=== PATIENT | male | born 1960 | race African-American/Black ===

== ENCOUNTER 2020-01-11 17:24 | Inpatient (IN) ==
[2020-01-11] MEDS ORDERED: ACETAMINOPHEN 500 MG TABLET PO STA (17:52)
[2020-01-11] MEDS ORDERED: SODIUM CHLORIDE 0.9% 1,000 ML IV STA ×3 (17:52→20:24)
[2020-01-11 18:52] LABS: Bacteria,Urine Many /HPF (Few); Bilirubin,Urine Negative (Negative); Blood, Urine Large mg/dL (Negative); Glucose,Urine (UA) Negative (Negative); Hyaline Casts,Urine 16 /LPF (0-3); Ketones,Urine Negative (Negative); Mucus,Urine Occasional /LPF (Occasional); Nitrite,Urine Negative (Negative); Protein,Urine 100 MG/DL; RBC,Urine 210 /HPF (0-4); Squamous Epithelial Cell,Urine Occasional /HPF (0-10); Urine Appearance CLOUDY (Clear); Urine Color Amber (Yellow); Urine Specific Gravity 1.013 (1.001-1.035); Urine Urobilinogen < 2.0 EU/DL (0.2-1.0); WBC,Urine 107 /HPF (0-6)
[2020-01-11] MEDS ORDERED: cefTRIAXone 1,000 MG in SODIUM CHLORIDE 0.9% 100 ML IV STA (18:54)
[2020-01-11 19:05] LABS: Basophils # 0.1 10*3/uL (0.0-0.2); Basophils % 0.3 % (0.0-0.8); Hematocrit 38.8 VOL% (42.0-52.0); Immature Granulocytes % 6.3 %; Immature Granulocytes Absolute 1.06 #; Lymphocytes # 0.5 10*3/uL (1.4-4.0); Lymphocytes % 2.9 % (21.2-54.2); Mean Corpuscular HGB Conc 33.5 GM/DL (32-36); Mean Corpuscular Volume 71.3 FL (87-102); Monocytes % 1.1 % (1.7-12.7); Neutrophils % 89.4 % (38.7-73.9); Platelet Count 81 T/CUMM (130-400); Red Blood Count 5.44 MC/CUMM (3.8-5.5); Red Cell Distribution Width 16.1 % (9.3-17.3); White Blood Count 16.9 T/CUMM (4-12)
[2020-01-11 19:25] LABS: Alanine Aminotransferase 27 U/L (16-61); Albumin 2.8 G/DL (3.4-5.0); Alkaline Phosphatase 84 U/L (45-117); Aspartate Amino Transferase 125 U/L (0-37); Blood Urea Nitrogen 38 MG/DL (7-18); Calcium 7.9 MG/DL (8.5-10.1); Estimated Glom Filtration Rate 38 ML/MIN; Glucose 168 MG/DL (74-106); Osmolality,Calculated 276.5 MOS/KG (273-304); Total Protein 7.4 G/DL (6.4-8.3)
[2020-01-11 20:10] LABS: Lymphocytes 5 % (20-55); Segmented Neutrophils 93 % (50-85); Total Cells Counted 100
[2020-01-11] MEDS ORDERED: SODIUM CHLORIDE 0.9% 3,000 ML IV ONE (20:21)
[2020-01-11] MEDS ORDERED: hydrALAZINE 20 MG/1 ML VIAL IV PRN (20:25)
[2020-01-11] MEDS ORDERED: ONDANSETRON 4 MG/2 ML VIAL IV PRN (20:25)
[2020-01-11] MEDS ORDERED: DEXTROSE 50% 25 GM/50 ML VIAL IV PRN (20:25)
[2020-01-11] MEDS ORDERED: GLUCAGON 1 MG VIAL IM PRN (20:25)
[2020-01-11] MEDS ORDERED: MORPHINE 4 MG/1 ML VIAL IV PRN (20:25)
[2020-01-11] MEDS ORDERED: SODIUM CHLORIDE 0.45% 1,000 ML IV SCH (20:30)
[2020-01-11 20:39] LABS: INR 1.5; PT Patient Result 15.3 SECS (9.8-11.9)
[2020-01-11 20:42] LABS: Partial Thromboplastin Time 45.8 SECS (23.9-33.8)
[2020-01-11 20:56] LABS: Thyroid Stimulating Hormone 2.06 uIU/ml (0.358-3.74)
[2020-01-11] MEDS ORDERED: LIDOCAINE 2% TOP JELLY 20 ML VIAL INTRAURETH ONE (21:28)
[2020-01-11] MEDS ORDERED: DEXTROSE 50% 25 GM/50 ML SYRINGE IV PRN (21:29)
[2020-01-11] MEDS: ENOXAPARIN 30 MG/0.3 ML SYRINGE SUBCUT SCH (23:15)
[2020-01-12] MEDS: SODIUM CHLORIDE 0.9% 1,000 ML IV SCH ×2 (00:42→18:50)
[2020-01-12 02:48] LABS: Basophils # 0.1 10*3/uL (0.0-0.2); Basophils % 0.3 % (0.0-0.8); Hematocrit 34.8 VOL% (42.0-52.0); Hemoglobin 11.6 GM/DL (14.0-18.0); Immature Granulocytes % 0.4 %; Immature Granulocytes Absolute 0.09 #; Lymphocytes # 1.2 10*3/uL (1.4-4.0); Lymphocytes % 5.6 % (21.2-54.2); Mean Corpuscular HGB Conc 33.3 GM/DL (32-36); Mean Corpuscular Volume 71.8 FL (87-102); Monocytes % 1.9 % (1.7-12.7); Neutrophils % 91.8 % (38.7-73.9); Red Blood Count 4.85 MC/CUMM (3.8-5.5); White Blood Count 20.8 T/CUMM (4-12)
[2020-01-12 02:49] LABS: Platelet Count 63 T/CUMM (130-400)
[2020-01-12 03:07] LABS: Albumin 2.5 G/DL (3.4-5.0); Bilirubin,Total 1.6 MG/DL (0.2-1.0); Calcium 7.2 MG/DL (8.5-10.1); Total Protein 6.5 G/DL (6.4-8.3)
[2020-01-12 03:16] LABS: Band Neutrophils 3 % (0-10); Eosinophils 1 % (0-10); Lymphocytes 7 % (20-55); Metamyelocytes 2 %; Total Cells Counted 100
[2020-01-12 03:17] LABS: Hypochromasia 2+; Platelet Estimate Decreased
[2020-01-12 03:18] LABS: Smudge Cells Few; Target Cells Few
[2020-01-12 03:19] LABS: Segmented Neutrophils 86 % (50-85)
[2020-01-12] MEDS: PANTOPRAZOLE 40 MG TABLET PO SCH (13:25)
[2020-01-12] MEDS: ENOXAPARIN 30 MG/0.3 ML SYRINGE SUBCUT SCH (20:56)
[2020-01-12] MEDS: cefTRIAXone 1,000 MG in SYRINGE 1 EACH IV SCH (20:56)
[2020-01-13] MEDS: SODIUM CHLORIDE 0.9% 1,000 ML IV SCH ×3 (02:35→10:33)
[2020-01-13 09:11] LABS: Basophils # 0.1 10*3/uL (0.0-0.2); Basophils % 0.3 % (0.0-0.8); Eosinophils # 0.1 10*3/uL (0.0-0.87); Eosinophils % 0.5 % (0.00-10.9); Hematocrit 34.5 VOL% (42.0-52.0); Hemoglobin 11.7 GM/DL (14.0-18.0); Immature Granulocytes % 0.9 %; Immature Granulocytes Absolute 0.17 #; Lymphocytes # 1.5 10*3/uL (1.4-4.0); Mean Corpuscular HGB Conc 33.9 GM/DL (32-36); Mean Corpuscular Volume 70.3 FL (87-102); Monocytes % 4.5 % (1.7-12.7); Neutrophils % 85.8 % (38.7-73.9); Red Blood Count 4.91 MC/CUMM (3.8-5.5); Red Cell Distribution Width 15.7 % (9.3-17.3); White Blood Count 18.8 T/CUMM (4-12)
[2020-01-13 09:12] LABS: Platelet Count 91 T/CUMM (130-400)
[2020-01-13 09:24] LABS: Osmolality,Calculated 281.5 MOS/KG (273-304)
[2020-01-13 09:28] LABS: Hypochromasia 1+; Lymphocytes 9 % (20-55); Microcytosis 1+; Platelet Estimate Decreased; Segmented Neutrophils 85 % (50-85); Total Cells Counted 100
[2020-01-13] MEDS: PANTOPRAZOLE 40 MG TABLET PO SCH (10:10)
[2020-01-13] MEDS: SODIUM CHLORIDE 0.45% 1,000 ML IV SCH (19:42)
[2020-01-13] MEDS: ENOXAPARIN 30 MG/0.3 ML SYRINGE SUBCUT SCH (20:54)
[2020-01-13] MEDS: cefTRIAXone 1,000 MG in SYRINGE 1 EACH IV SCH (20:54)
[2020-01-14 06:56] LABS: Basophils # 0.1 10*3/uL (0.0-0.2); Basophils % 0.4 % (0.0-0.8); Eosinophils # 0.3 10*3/uL (0.0-0.87); Hematocrit 32.3 VOL% (42.0-52.0); Immature Granulocytes % 2.7 %; Immature Granulocytes Absolute 0.33 #; Lymphocytes # 1.8 10*3/uL (1.4-4.0); Lymphocytes % 14.2 % (21.2-54.2); Mean Corpuscular HGB Conc 34.1 GM/DL (32-36); Mean Corpuscular Volume 69.2 FL (87-102); Monocytes % 12.4 % (1.7-12.7); Neutrophils % 68.3 % (38.7-73.9); Platelet Count 110 T/CUMM (130-400); Red Blood Count 4.67 MC/CUMM (3.8-5.5); Red Cell Distribution Width 15.5 % (9.3-17.3); White Blood Count 12.3 T/CUMM (4-12)
[2020-01-14 07:13] LABS: Calcium 8.4 MG/DL (8.5-10.1); Osmolality,Calculated 276.5 MOS/KG (273-304)
[2020-01-14 07:18] LABS: Eosinophils 2 % (0-10); Hypochromasia 1+; Lymphocytes 20 % (20-55); Microcytosis 1+; Segmented Neutrophils 64 % (50-85); Total Cells Counted 100
[2020-01-14 07:19] LABS: Platelet Estimate Adequate; Target Cells Few
[2020-01-14] MEDS: PANTOPRAZOLE 40 MG TABLET PO SCH (08:37)
[2020-01-14] MEDS: SODIUM CHLORIDE 0.45% 1,000 ML IV SCH (08:44)
[2020-01-14 09:20] LABS: Amorphous Crystals,Urine Occasional /HPF (Few); Bacteria,Urine Occasional /HPF (Few); Bilirubin,Urine Negative (Negative); Blood, Urine Moderate mg/dL (Negative); Glucose,Urine (UA) 50 mg/dL (Negative); Ketones,Urine Negative (Negative); Mucus,Urine Occasional /LPF (Occasional); Nitrite,Urine Negative (Negative); Protein,Urine Negative; RBC,Urine 13 /HPF (0-4); Squamous Epithelial Cell,Urine Occasional /HPF (0-10); Urine Appearance CLEAR (Clear); Urine Color Yellow (Yellow); Urine Specific Gravity 1.008 (1.001-1.035); WBC,Urine 53 /HPF (0-6)
[2020-01-14] MEDS: amLODIPine 5 MG TABLET PO SCH (15:39)
[2020-01-14] MEDS: cefTRIAXone 1,000 MG in SYRINGE 1 EACH IV SCH (20:39)
[2020-01-14] MEDS: ENOXAPARIN 30 MG/0.3 ML SYRINGE SUBCUT SCH (20:41)
[2020-01-15] MEDS: SODIUM CHLORIDE 0.45% 1,000 ML IV SCH ×2 (00:50→20:55)
[2020-01-15 06:26] LABS: HDL Cholesterol < 10 MG/DL (40-60); Triglycerides 302 MG/DL (2-150); VLDL CHOLESTEROL 60.4 MG/DL
[2020-01-15] MEDS ORDERED: VANCOMYCIN INJ 1,000 MG in SODIUM CHLORIDE 0.9% 250 ML IV ONE (08:47)
[2020-01-15 09:21] LABS: Basophils # 0.1 10*3/uL (0.0-0.2); Basophils % 0.3 % (0.0-0.8); Eosinophils # 0.3 10*3/uL (0.0-0.87); Eosinophils % 1.7 % (0.00-10.9); Hematocrit 34.4 VOL% (42.0-52.0); Hemoglobin 11.8 GM/DL (14.0-18.0); Immature Granulocytes % 6.2 %; Immature Granulocytes Absolute 0.92 #; Lymphocytes # 1.7 10*3/uL (1.4-4.0); Lymphocytes % 11.5 % (21.2-54.2); Mean Corpuscular HGB Conc 34.3 GM/DL (32-36); Mean Corpuscular Volume 68.7 FL (87-102); Monocytes % 9.7 % (1.7-12.7); NRBC # 0.02 10*3/uL; Neutrophils % 70.6 % (38.7-73.9); Platelet Count 164 T/CUMM (130-400); Red Blood Count 5.01 MC/CUMM (3.8-5.5); Red Cell Distribution Width 15.3 % (9.3-17.3); White Blood Count 14.9 T/CUMM (4-12)
[2020-01-15] MEDS: PANTOPRAZOLE 40 MG TABLET PO SCH (10:01)
[2020-01-15] MEDS: amLODIPine 5 MG TABLET PO SCH (10:01)
[2020-01-15 10:43] LABS: Hypochromasia 2+; Lymphocytes 6 % (20-55); Microcytosis 3+; Platelet Estimate Adequate; Segmented Neutrophils 61 % (50-85); Total Cells Counted 100
[2020-01-15] MEDS: OMEGA 3 ACID ETHYL ESTERS 1 GM CAPSULE PO SCH ×2 (13:36→20:57)
[2020-01-15] MEDS: FENOFIBRATE 145 MG TABLET PO SCH (13:36)
[2020-01-15] MEDS ORDERED: ACETAMINOPHEN 325 MG TABLET PO PRN (18:55)
[2020-01-15] MEDS: ENOXAPARIN 30 MG/0.3 ML SYRINGE SUBCUT SCH (20:57)
[2020-01-15] MEDS: cefTRIAXone 1,000 MG in SYRINGE 1 EACH IV SCH (21:00)
[2020-01-16] MEDS ORDERED: FUROSEMIDE 40 MG/4 ML VIAL IV ONE (08:20)
[2020-01-16] MEDS: AZITHROMYCIN 250 MG TABLET PO SCH (08:57)
[2020-01-16] MEDS: FENOFIBRATE 145 MG TABLET PO SCH (08:57)
[2020-01-16] MEDS: PANTOPRAZOLE 40 MG TABLET PO SCH (08:57)
[2020-01-16] MEDS: amLODIPine 10 MG TABLET PO SCH (08:57)
[2020-01-16 09:22] LABS: Basophils # 0.1 10*3/uL (0.0-0.2); Basophils % 0.2 % (0.0-0.8); Eosinophils # 0.1 10*3/uL (0.0-0.87); Eosinophils % 0.5 % (0.00-10.9); Hematocrit 35.7 VOL% (42.0-52.0); Hemoglobin 12.2 GM/DL (14.0-18.0); Immature Granulocytes % 5.3 %; Immature Granulocytes Absolute 1.15 #; Mean Corpuscular HGB Conc 34.2 GM/DL (32-36); Mean Corpuscular Volume 69.3 FL (87-102); Monocytes % 7.7 % (1.7-12.7); Neutrophils % 77.3 % (38.7-73.9); Platelet Count 222 T/CUMM (130-400); Red Blood Count 5.15 MC/CUMM (3.8-5.5); Red Cell Distribution Width 15.3 % (9.3-17.3); White Blood Count 21.6 T/CUMM (4-12)
[2020-01-16 09:49] LABS: Calcium 8.9 MG/DL (8.5-10.1)
[2020-01-16] MEDS ORDERED: MAGNESIUM SULF RIDER 2 GM in PREMIX 1 EACH IV ONE (10:52)
[2020-01-16] MEDS ORDERED: POTASSIUM CHLORIDE 20 MEQ TABLET PO ONE (10:52)
[2020-01-16] MEDS: OMEGA 3 ACID ETHYL ESTERS 1 GM CAPSULE PO SCH ×2 (11:55→20:47)
[2020-01-16 13:11] LABS: Band Neutrophils 2 % (0-10); Hypochromasia 4+; Lymphocytes 8 % (20-55); Polychromasia Slight; Segmented Neutrophils 73 % (50-85); Total Cells Counted 100
[2020-01-16 13:12] LABS: Microcytosis 3+; Platelet Estimate Normal; Target Cells 2+
[2020-01-16] MEDS: VANCOMYCIN INJ 1,250 MG in SODIUM CHLORIDE 0.9% 250 ML IV SCH (16:40)
[2020-01-16] MEDS: ENOXAPARIN 30 MG/0.3 ML SYRINGE SUBCUT SCH (20:47)
[2020-01-16] MEDS: cefTRIAXone 1,000 MG in SYRINGE 1 EACH IV SCH (20:48)
[2020-01-17] MEDS: VANCOMYCIN INJ 1,250 MG in SODIUM CHLORIDE 0.9% 250 ML IV SCH (04:14)
[2020-01-17 05:59] LABS: Basophils # 0.1 10*3/uL (0.0-0.2); Basophils % 0.2 % (0.0-0.8); Eosinophils # 0.2 10*3/uL (0.0-0.87); Hematocrit 30.7 VOL% (42.0-52.0); Hemoglobin 10.3 GM/DL (14.0-18.0); Immature Granulocytes % 4.9 %; Immature Granulocytes Absolute 1.03 #; Lymphocytes # 2.4 10*3/uL (1.4-4.0); Lymphocytes % 11.3 % (21.2-54.2); Mean Corpuscular HGB Conc 33.6 GM/DL (32-36); Mean Corpuscular Volume 69.6 FL (87-102); Monocytes % 7.8 % (1.7-12.7); Neutrophils % 74.8 % (38.7-73.9); Platelet Count 230 T/CUMM (130-400); Red Blood Count 4.41 MC/CUMM (3.8-5.5); Red Cell Distribution Width 14.6 % (9.3-17.3); White Blood Count 20.9 T/CUMM (4-12)
[2020-01-17 06:25] LABS: Eosinophils 3 % (0-10); Hypochromasia 1+; Lymphocytes 5 % (20-55); Platelet Estimate Adequate; Segmented Neutrophils 84 % (50-85); Target Cells Few; Total Cells Counted 100
[2020-01-17 06:26] LABS: Microcytosis 1+
[2020-01-17 06:33] LABS: Calcium 8.7 MG/DL (8.5-10.1); Osmolality,Calculated 274.7 MOS/KG (273-304)
[2020-01-17] MEDS: FENOFIBRATE 145 MG TABLET PO SCH (08:51)
[2020-01-17] MEDS: amLODIPine 10 MG TABLET PO SCH (08:52)
[2020-01-17] MEDS: AZITHROMYCIN 250 MG TABLET PO SCH (08:52)
[2020-01-17] MEDS: PANTOPRAZOLE 40 MG TABLET PO SCH (08:52)
[2020-01-17] MEDS: OMEGA 3 ACID ETHYL ESTERS 1 GM CAPSULE PO SCH (10:34)
[2020-01-17 11:34] VITALS: BP 126/71
== END 2020-01-17 14:26 | disposition home or self-care (01) | DRG 872 ==
LOC: N.ED 17:24 → N.3E 20:37
PROVIDERS: ADMIT Internal Medicine; ATTEND Internal Medicine

== ENCOUNTER 2020-01-20 20:49 | Inpatient (IN) ==
[2020-01-20] MEDS ORDERED: ASPIRIN 325 MG TABLET PO STA (21:14)
[2020-01-20 21:41] LABS: Basophils # 0.1 10*3/uL (0.0-0.2); Basophils % 0.2 % (0.0-0.8); Eosinophils % 0.2 % (0.00-10.9); Hematocrit 28.1 VOL% (42.0-52.0); Hemoglobin 9.8 GM/DL (14.0-18.0); Immature Granulocytes % 2.2 %; Immature Granulocytes Absolute 0.47 #; Lymphocytes # 2.2 10*3/uL (1.4-4.0); Lymphocytes % 10.1 % (21.2-54.2); Mean Corpuscular HGB Conc 34.9 GM/DL (32-36); Mean Corpuscular Volume 68.9 FL (87-102); Monocytes % 4.3 % (1.7-12.7); Platelet Count 266 T/CUMM (130-400); Red Blood Count 4.08 MC/CUMM (3.8-5.5); Red Cell Distribution Width 14.8 % (9.3-17.3); White Blood Count 21.8 T/CUMM (4-12)
[2020-01-20 21:46] LABS: INR 1.1; PT Patient Result 11.9 SECS (9.8-11.9)
[2020-01-20 21:49] LABS: Lymphocytes 11 % (20-55); Segmented Neutrophils 85 % (50-85); Total Cells Counted 100
[2020-01-20 21:50] LABS: Anisocytosis Slight; Hypochromasia 1+; Platelet Estimate Adequate; Target Cells Few
[2020-01-20] MEDS ORDERED: cefTRIAXone 1,000 MG in SODIUM CHLORIDE 0.9% 100 ML IV STA (21:53)
[2020-01-20] MEDS ORDERED: DEXAMETHASONE 4 MG/1 ML VIAL IV STA (21:54)
[2020-01-20 22:03] LABS: Albumin 2.5 G/DL (3.4-5.0); Bilirubin,Total 1.1 MG/DL (0.2-1.0); Calcium 8.9 MG/DL (8.5-10.1); Osmolality,Calculated 265.8 MOS/KG (273-304)
[2020-01-20] MEDS ORDERED: carvediloL 3.125 MG TABLET PO STA (22:32)
[2020-01-20] MEDS ORDERED: ENOXAPARIN 30 MG/0.3 ML SYRINGE SUBCUT STA (22:32)
[2020-01-20] MEDS ORDERED: FUROSEMIDE 40 MG/4 ML VIAL IV STA (22:36)
[2020-01-20] MEDS ORDERED: ENOXAPARIN 100 MG/ML SYRINGE SUBCUT STA (22:38)
[2020-01-20] MEDS ORDERED: DOCUSATE SODIUM 100 MG CAPSULE PO PRN (23:10)
[2020-01-20] MEDS ORDERED: DEXTROSE 50% 25 GM/50 ML VIAL IV PRN (23:10)
[2020-01-20] MEDS ORDERED: ONDANSETRON 4 MG/2 ML VIAL IV PRN (23:10)
[2020-01-20] MEDS ORDERED: BISACODYL 5 MG TABLET PO PRN (23:10)
[2020-01-20] MEDS ORDERED: GLUCAGON 1 MG VIAL IM PRN (23:10)
[2020-01-20] MEDS ORDERED: NITROGLYCERIN SL 0.4 MG TABLET SL PRN (23:26)
[2020-01-20] MEDS ORDERED: AZITHROMYCIN INJ 500 MG in SODIUM CHLORIDE 0.9% 250 ML IV SCH (23:30)
[2020-01-21 01:45] LABS: Albumin 2.5 G/DL (3.4-5.0); Calcium 8.8 MG/DL (8.5-10.1); Osmolality,Calculated 271.5 MOS/KG (273-304); Total Protein 7.9 G/DL (6.4-8.3)
[2020-01-21] MEDS ORDERED: POTASSIUM CHLORIDE 20 MEQ TABLET PO ONE (02:15)
[2020-01-21 02:25] LABS: Basophils # 0.1 10*3/uL (0.0-0.2); Basophils % 0.2 % (0.0-0.8); Eosinophils % 0.1 % (0.00-10.9); Hematocrit 28.4 VOL% (42.0-52.0); Hemoglobin 9.5 GM/DL (14.0-18.0); Immature Granulocytes % 1.9 %; Immature Granulocytes Absolute 0.44 #; Lymphocytes # 1.6 10*3/uL (1.4-4.0); Lymphocytes % 6.9 % (21.2-54.2); Mean Corpuscular HGB Conc 33.5 GM/DL (32-36); Mean Corpuscular Volume 70.6 FL (87-102); Mean Platelet Volume 11.9 FL (9.6-12.0); Monocytes % 2.1 % (1.7-12.7); Neutrophils % 88.8 % (38.7-73.9); Red Blood Count 4.02 MC/CUMM (3.8-5.5); Red Cell Distribution Width 15.2 % (9.3-17.3); White Blood Count 23.6 T/CUMM (4-12)
[2020-01-21 02:27] LABS: Platelet Count 491 T/CUMM (130-400)
[2020-01-21] MEDS: ROSUVASTATIN 20 MG TABLET PO SCH ×2 (03:06→20:25)
[2020-01-21 03:09] LABS: Risk Ratio 6.79; VLDL CHOLESTEROL 23.6 MG/DL
[2020-01-21 04:17] LABS: Hypochromasia 2+; Platelet Estimate Increased
[2020-01-21 04:18] LABS: Ovalocytes 1+; Target Cells 1+
[2020-01-21 05:57] LABS: Albumin 2.4 G/DL (3.4-5.0); Bilirubin,Total 1.4 MG/DL (0.2-1.0); Calcium 9.1 MG/DL (8.5-10.1); Osmolality,Calculated 269.7 MOS/KG (273-304); Total Protein 8.1 G/DL (6.4-8.3)
[2020-01-21 05:59] LABS: Risk Ratio 6.07; VLDL CHOLESTEROL 22.2 MG/DL
[2020-01-21] MEDS ORDERED: FUROSEMIDE 40 MG/4 ML VIAL IV SCH ×2 (08:00→09:00)
[2020-01-21] MEDS ORDERED: carvediloL 6.25 MG TABLET PO SCH (08:00)
[2020-01-21] MEDS: FOLIC ACID 1 MG TABLET PO SCH (08:55)
[2020-01-21] MEDS: AZITHROMYCIN 250 MG TABLET PO SCH (08:55)
[2020-01-21] MEDS: THIAMINE 100 MG TABLET PO SCH (08:55)
[2020-01-21] MEDS: carvediloL 12.5 MG TABLET PO SCH ×2 (08:55→20:26)
[2020-01-21] MEDS: ASPIRIN CHEW 81 MG TABLET PO SCH (08:55)
[2020-01-21] MEDS ORDERED: POTASSIUM CHLORIDE 20 MEQ TABLET PO SCH (09:00)
[2020-01-21 12:32] LABS: Barbiturates Screen,Urine Negative (Negative); Benzodiazepines Screen,Urine Negative (Negative); Cannabinoid Screen,Urine Negative (Negative); Opiate Screen,Urine Positive (Negative); Phencyclidine Screen,Urine Negative (Negative)
[2020-01-21] MEDS: ENOXAPARIN 100 MG/ML SYRINGE SUBCUT SCH (12:51)
[2020-01-21] MEDS: NITROGLYCERIN 2% OINT 1 INCH/GM PACK TOP SCH ×2 (12:52→17:37)
[2020-01-21] MEDS ORDERED: SODIUM CHLORIDE 0.9% 250 ML IV ONE (16:54)
[2020-01-21] MEDS ORDERED: cefTRIAXone 1,000 MG VIAL IV SCH (21:00)
[2020-01-22] MEDS: NITROGLYCERIN 2% OINT 1 INCH/GM PACK TOP SCH ×5 (00:06→23:46)
[2020-01-22] MEDS: ENOXAPARIN 100 MG/ML SYRINGE SUBCUT SCH ×3 (00:06→22:25)
[2020-01-22] MEDS: MORPHINE 4 MG/1 ML VIAL IV PRN ×4 (00:51→22:26)
[2020-01-22] MEDS ORDERED: ALBUTEROL/IPRATROPIUM 3 ML NEB RESP TX PRN (05:19)
[2020-01-22 07:29] LABS: CKMB % 4.1 %; Calcium 9.1 MG/DL (8.5-10.1); Osmolality,Calculated 277.4 MOS/KG (273-304)
[2020-01-22 07:38] LABS: Troponin I 16.8 NG/ML (0.00-0.045)
[2020-01-22] MEDS ORDERED: FUROSEMIDE 40 MG/4 ML VIAL IV SCH (09:00)
[2020-01-22] MEDS: AZITHROMYCIN 250 MG TABLET PO SCH (10:05)
[2020-01-22] MEDS: ASPIRIN CHEW 81 MG TABLET PO SCH (10:05)
[2020-01-22] MEDS: THIAMINE 100 MG TABLET PO SCH (10:06)
[2020-01-22] MEDS: carvediloL 12.5 MG TABLET PO SCH ×2 (10:06→22:24)
[2020-01-22] MEDS: FOLIC ACID 1 MG TABLET PO SCH (10:06)
[2020-01-22] MEDS: FUROSEMIDE 40 MG/4 ML VIAL IV SCH (16:23)
[2020-01-22] MEDS: CEFEPIME 1,000 MG in SODIUM CHLORIDE 0.9% 100 ML IV SCH ×2 (16:24→22:25)
[2020-01-22 17:11] LABS: Bilirubin,Urine Negative (Negative); Blood, Urine Large mg/dL (Negative); Glucose,Urine (UA) Negative (Negative); Hyaline Casts,Urine 16 /LPF (0-3); Ketones,Urine Negative (Negative); Mucus,Urine Occasional /LPF (Occasional); Nitrite,Urine Negative (Negative); Protein,Urine Negative; RBC,Urine 19 /HPF (0-4); Squamous Epithelial Cell,Urine Occasional /HPF (0-10); Urine Appearance CLOUDY (Clear); Urine Color Yellow (Yellow); Urine Specific Gravity 1.014 (1.001-1.035); Urine Urobilinogen < 2.0 EU/DL (0.2-1.0); WBC,Urine 379 /HPF (0-6)
[2020-01-22] MEDS: POTASSIUM CHLORIDE 20 MEQ TABLET PO SCH (22:23)
[2020-01-22] MEDS: ROSUVASTATIN 20 MG TABLET PO SCH (22:23)
[2020-01-22] MEDS: TAMSULOSIN 0.4 MG CAPSULE PO SCH (22:24)
[2020-01-23] MEDS: NITROGLYCERIN 2% OINT 1 INCH/GM PACK TOP SCH ×4 (05:12→23:06)
[2020-01-23] MEDS: CEFEPIME 1,000 MG in SODIUM CHLORIDE 0.9% 100 ML IV SCH ×3 (06:29→22:27)
[2020-01-23 06:44] LABS: Osmolality,Calculated 281.1 MOS/KG (273-304)
[2020-01-23 06:49] LABS: Basophils % 0.2 % (0.0-0.8); Eosinophils % 0.1 % (0.00-10.9); Hematocrit 26.6 VOL% (42.0-52.0); Hemoglobin 8.7 GM/DL (14.0-18.0); Immature Granulocytes % 1.7 %; Immature Granulocytes Absolute 0.25 #; Lymphocytes # 1.8 10*3/uL (1.4-4.0); Lymphocytes % 11.8 % (21.2-54.2); Mean Corpuscular HGB Conc 32.7 GM/DL (32-36); Mean Corpuscular Volume 72.7 FL (87-102); Mean Platelet Volume 11.7 FL (9.6-12.0); Monocytes % 7.1 % (1.7-12.7); Neutrophils % 79.1 % (38.7-73.9); Red Blood Count 3.66 MC/CUMM (3.8-5.5); Red Cell Distribution Width 15.5 % (9.3-17.3)
[2020-01-23 06:57] LABS: Platelet Count 747 T/CUMM (130-400); White Blood Count 15.1 T/CUMM (4-12)
[2020-01-23] MEDS: ASPIRIN CHEW 81 MG TABLET PO SCH (09:35)
[2020-01-23] MEDS: POTASSIUM CHLORIDE 20 MEQ TABLET PO SCH ×2 (09:35→22:25)
[2020-01-23] MEDS: AZITHROMYCIN 250 MG TABLET PO SCH (09:35)
[2020-01-23] MEDS: THIAMINE 100 MG TABLET PO SCH (09:35)
[2020-01-23] MEDS: FOLIC ACID 1 MG TABLET PO SCH (09:35)
[2020-01-23] MEDS: carvediloL 12.5 MG TABLET PO SCH ×2 (09:35→22:26)
[2020-01-23] MEDS: FUROSEMIDE 40 MG/4 ML VIAL IV SCH ×2 (09:35→15:34)
[2020-01-23] MEDS: ENOXAPARIN 100 MG/ML SYRINGE SUBCUT SCH ×2 (11:07→22:26)
[2020-01-23] MEDS ORDERED: MAGNESIUM SULF RIDER 2 GM in PREMIX 1 EACH IV PRN (14:11)
[2020-01-23] MEDS ORDERED: DIAZEPAM 5 MG TABLET PO ONE (14:11)
[2020-01-23] MEDS ORDERED: POTASSIUM CHLORIDE RIDER 10 MEQ in PREMIX 1 EACH IV PRN (14:11)
[2020-01-23] MEDS ORDERED: diphenhydrAMINE CAP 25 MG CAPSULE PO ONE (14:11)
[2020-01-23] MEDS ORDERED: SODIUM CHLORIDE 0.9% 1,000 ML IV SCH (14:30)
[2020-01-23] MEDS: TAMSULOSIN 0.4 MG CAPSULE PO SCH (22:25)
[2020-01-23] MEDS: ROSUVASTATIN 20 MG TABLET PO SCH (22:25)
[2020-01-24] MEDS ORDERED: DIAZEPAM 5 MG TABLET PO ONE (06:00)
[2020-01-24] MEDS ORDERED: SODIUM CHLORIDE 0.9% 1,000 ML IV SCH ×2 (06:00→10:00)
[2020-01-24] MEDS ORDERED: diphenhydrAMINE CAP 25 MG CAPSULE PO ONE (06:00)
[2020-01-24 06:15] LABS: Basophils # 0.1 10*3/uL (0.0-0.2); Basophils % 0.4 % (0.0-0.8); Eosinophils # 0.1 10*3/uL (0.0-0.87); Eosinophils % 0.6 % (0.00-10.9); Hematocrit 28.7 VOL% (42.0-52.0); Hemoglobin 9.3 GM/DL (14.0-18.0); Immature Granulocytes % 1.1 %; Immature Granulocytes Absolute 0.12 #; Lymphocytes # 1.7 10*3/uL (1.4-4.0); Lymphocytes % 14.9 % (21.2-54.2); Mean Corpuscular HGB Conc 32.4 GM/DL (32-36); Mean Corpuscular Volume 73.2 FL (87-102); Mean Platelet Volume 10.5 FL (9.6-12.0); Monocytes % 8.8 % (1.7-12.7); Neutrophils % 74.2 % (38.7-73.9); Platelet Count 819 T/CUMM (130-400); Red Blood Count 3.92 MC/CUMM (3.8-5.5); Red Cell Distribution Width 15.8 % (9.3-17.3); White Blood Count 11.4 T/CUMM (4-12)
[2020-01-24] MEDS: NITROGLYCERIN 2% OINT 1 INCH/GM PACK TOP SCH ×4 (06:32→23:55)
[2020-01-24] MEDS: CEFEPIME 1,000 MG in SODIUM CHLORIDE 0.9% 100 ML IV SCH ×3 (06:33→23:55)
[2020-01-24 06:35] LABS: Calcium 9.1 MG/DL (8.5-10.1); Osmolality,Calculated 285.4 MOS/KG (273-304)
[2020-01-24 07:13] LABS: Lymphocytes 13 % (20-55); Platelet Estimate Increased; Segmented Neutrophils 80 % (50-85); Total Cells Counted 100
[2020-01-24 07:14] LABS: Hypochromasia 2+; Microcytosis 1+; Target Cells Few
[2020-01-24] MEDS ORDERED: TIROFIBAN 5,000 MCG/100 ML PREMIX IV SCH (07:37)
[2020-01-24] MEDS: carvediloL 12.5 MG TABLET PO SCH ×2 (08:41→21:20)
[2020-01-24] MEDS: AZITHROMYCIN 250 MG TABLET PO SCH (08:41)
[2020-01-24] MEDS: ASPIRIN CHEW 81 MG TABLET PO SCH (08:41)
[2020-01-24] MEDS: FOLIC ACID 1 MG TABLET PO SCH (08:41)
[2020-01-24] MEDS: POTASSIUM CHLORIDE 20 MEQ TABLET PO SCH ×2 (08:41→21:19)
[2020-01-24] MEDS: THIAMINE 100 MG TABLET PO SCH (08:41)
[2020-01-24] MEDS ORDERED: NITROGLYCERIN DRIP 50 MG/250 ML BOTTLE IV ONE (08:42)
[2020-01-24] MEDS ORDERED: VERAPAMIL 5 MG/2 ML VIAL ONE (08:42)
[2020-01-24] MEDS ORDERED: LIDOCAINE 1% 20 ML VIAL ONE (08:42)
[2020-01-24] MEDS: FUROSEMIDE 40 MG/4 ML VIAL IV SCH ×2 (08:53→15:32)
[2020-01-24] MEDS ORDERED: fentaNYL 100 MCG/2 ML VIAL ONE (08:56)
[2020-01-24] MEDS ORDERED: MIDAZOLAM 2 MG/2 ML VIAL ONE (08:56)
[2020-01-24] MEDS ORDERED: ENOXAPARIN 30 MG/0.3 ML SYRINGE ONE (09:23)
[2020-01-24] MEDS: ENOXAPARIN 100 MG/ML SYRINGE SUBCUT SCH (10:15)
[2020-01-24] MEDS ORDERED: DEXTROSE 50% 25 GM/50 ML VIAL IV PRN (12:24)
[2020-01-24] MEDS ORDERED: GLUCAGON 1 MG VIAL IM PRN (12:24)
[2020-01-24] MEDS: MORPHINE 4 MG/1 ML VIAL IV PRN (15:31)
[2020-01-24] MEDS: ROSUVASTATIN 20 MG TABLET PO SCH (21:19)
[2020-01-24] MEDS: TAMSULOSIN 0.4 MG CAPSULE PO SCH (21:20)
[2020-01-25 06:24] LABS: Basophils # 0.1 10*3/uL (0.0-0.2); Basophils % 0.5 % (0.0-0.8); Eosinophils # 0.3 10*3/uL (0.0-0.87); Eosinophils % 2.5 % (0.00-10.9); Hematocrit 29.1 VOL% (42.0-52.0); Hemoglobin 8.9 GM/DL (14.0-18.0); Immature Granulocytes % 0.8 %; Immature Granulocytes Absolute 0.08 #; Lymphocytes # 1.5 10*3/uL (1.4-4.0); Lymphocytes % 13.9 % (21.2-54.2); Mean Corpuscular HGB Conc 30.6 GM/DL (32-36); Mean Corpuscular Volume 76.2 FL (87-102); Mean Platelet Volume 10.9 FL (9.6-12.0); Monocytes % 9.9 % (1.7-12.7); Neutrophils % 72.4 % (38.7-73.9); Platelet Count 861 T/CUMM (130-400); Red Blood Count 3.82 MC/CUMM (3.8-5.5); Red Cell Distribution Width 16.1 % (9.3-17.3); White Blood Count 10.4 T/CUMM (4-12)
[2020-01-25] MEDS: NITROGLYCERIN 2% OINT 1 INCH/GM PACK TOP SCH ×3 (06:36→17:15)
[2020-01-25 06:49] LABS: Calcium 8.9 MG/DL (8.5-10.1); Osmolality,Calculated 281.5 MOS/KG (273-304)
[2020-01-25 06:52] LABS: Albumin 2.3 G/DL (3.4-5.0); Bilirubin,Total 1.2 MG/DL (0.2-1.0); Calcium 8.9 MG/DL (8.5-10.1); Osmolality,Calculated 279.7 MOS/KG (273-304); Total Protein 7.5 G/DL (6.4-8.3)
[2020-01-25] MEDS: CHLORHEXIDINE 0.12% ORAL RINSE 60 ML BOTTLE SWISH/SPIT SCH ×2 (09:15→21:45)
[2020-01-25] MEDS: POTASSIUM CHLORIDE 20 MEQ TABLET PO SCH ×2 (09:16→21:45)
[2020-01-25] MEDS: ASPIRIN CHEW 81 MG TABLET PO SCH (09:16)
[2020-01-25] MEDS: FOLIC ACID 1 MG TABLET PO SCH (09:16)
[2020-01-25] MEDS: FUROSEMIDE 40 MG/4 ML VIAL IV SCH ×2 (09:17→16:17)
[2020-01-25] MEDS: CHLORHEXIDINE 4% SOLN 118 ML BOTTLE TOP SCH ×2 (09:17→14:52)
[2020-01-25] MEDS: carvediloL 12.5 MG TABLET PO SCH ×2 (09:17→21:45)
[2020-01-25] MEDS: THIAMINE 100 MG TABLET PO SCH (09:17)
[2020-01-25 09:21] LABS: ABG Base Excess 3.5 MMOL/L (-2.5-2.5); ABG HCO3 27.5 MMOL/L (20-26); ABG Oxygen Saturation 98.7 % (95-100); ABG PCO2 41.8 MM HG (35-48); ABG PH 7.434 (7.35-7.45); ABG TCO2 25.7 MMOL/L (23-27); Allen Test Positive; Pt O2 Delivery Device Room Air
[2020-01-25] MEDS ORDERED: PANTOPRAZOLE 40 MG TABLET PO ONE (10:11)
[2020-01-25] MEDS ORDERED: DIAZEPAM 5 MG TABLET PO ONE (10:11)
[2020-01-25] MEDS: CEFEPIME 1,000 MG in SODIUM CHLORIDE 0.9% 100 ML IV SCH ×2 (10:54→14:52)
[2020-01-25] MEDS ORDERED: SODIUM CHLORIDE 0.9% 1,000 ML IV SCH (12:30)
[2020-01-25] MEDS: ROSUVASTATIN 20 MG TABLET PO SCH (21:45)
[2020-01-25] MEDS: TAMSULOSIN 0.4 MG CAPSULE PO SCH (21:45)
[2020-01-26] MEDS: CEFEPIME 1,000 MG in SODIUM CHLORIDE 0.9% 100 ML IV SCH ×4 (00:19→23:17)
[2020-01-26] MEDS: NITROGLYCERIN 2% OINT 1 INCH/GM PACK TOP SCH ×2 (00:20→06:13)
[2020-01-26] MEDS ORDERED: PAPAVERINE 60 MG/2 ML VIAL ONE (04:22)
[2020-01-26] MEDS ORDERED: VANCOMYCIN 1,000 MG VIAL ONE (04:22)
[2020-01-26] MEDS ORDERED: VANCOMYCIN 500 MG VIAL ONE (04:22)
[2020-01-26] MEDS: CHLORHEXIDINE 4% SOLN 118 ML BOTTLE TOP SCH (04:56)
[2020-01-26] MEDS ORDERED: PANTOPRAZOLE 40 MG TABLET PO ONE (05:00)
[2020-01-26] MEDS ORDERED: DIAZEPAM 5 MG TABLET PO ONE (05:00)
[2020-01-26] MEDS ORDERED: CEFUROXIME INJ 1,500 MG in SYRINGE 1 EACH IV ONE (05:00)
[2020-01-26] MEDS ORDERED: SUFentanil 250 MCG/5 ML AMP ONE ×2 (05:50→07:44)
[2020-01-26] MEDS ORDERED: MIDAZOLAM 10 MG/2 ML VIAL ONE ×4 (05:50→09:31)
[2020-01-26] MEDS ORDERED: HEPARIN/NACL 0.9% 2 UNITS/ML 500 ML IV ONE (05:51)
[2020-01-26] MEDS: carvediloL 12.5 MG TABLET PO SCH ×2 (06:05→13:47)
[2020-01-26] MEDS ORDERED: AMINOCAPROIC ACID 5,000 MG/20 ML VIAL ONE ×4 (06:07)
[2020-01-26] MEDS ORDERED: CALCIUM CHLORIDE 1,000 MG/10 ML VIAL IV ONE ×2 (06:08→10:04)
[2020-01-26] MEDS ORDERED: ETOMIDATE 40 MG/20 ML VIAL IV ONE (06:08)
[2020-01-26] MEDS ORDERED: PHENYLEPHRINE DRIP 20 MG/250 ML PREMIX IV ONE ×2 (06:08→10:41)
[2020-01-26] MEDS ORDERED: LIDOCAINE 2% 5 ML VIAL ONE ×2 (06:08→10:18)
[2020-01-26] MEDS ORDERED: VECURONIUM 10 MG VIAL IV ONE ×4 (06:08→09:43)
[2020-01-26] MEDS ORDERED: LACTATED RINGERS 1,000 ML IV ONE (06:09)
[2020-01-26] MEDS ORDERED: SODIUM CHLORIDE 0.9% 250 ML IV ONE (06:09)
[2020-01-26] MEDS ORDERED: SODIUM CHLORIDE 0.9% 1,000 ML IV ONE (06:09)
[2020-01-26 06:16] LABS: Basophils # 0.1 10*3/uL (0.0-0.2); Basophils % 0.7 % (0.0-0.8); Eosinophils # 0.3 10*3/uL (0.0-0.87); Eosinophils % 3.8 % (0.00-10.9); Hematocrit 30.2 VOL% (42.0-52.0); Hemoglobin 9.8 GM/DL (14.0-18.0); Immature Granulocytes % 0.7 %; Immature Granulocytes Absolute 0.06 #; Lymphocytes # 1.5 10*3/uL (1.4-4.0); Lymphocytes % 16.9 % (21.2-54.2); Mean Corpuscular HGB Conc 32.5 GM/DL (32-36); Mean Corpuscular Volume 74.4 FL (87-102); Mean Platelet Volume 10.6 FL (9.6-12.0); Monocytes % 9.8 % (1.7-12.7); Neutrophils % 68.1 % (38.7-73.9); Platelet Count 890 T/CUMM (130-400); Red Blood Count 4.06 MC/CUMM (3.8-5.5); Red Cell Distribution Width 15.9 % (9.3-17.3); White Blood Count 8.8 T/CUMM (4-12)
[2020-01-26 06:42] LABS: Blood Urea Nitrogen 20 MG/DL (7-18); Calcium 9.3 MG/DL (8.5-10.1); Estimated Glom Filtration Rate 72 ML/MIN; Glucose 117 MG/DL (74-106); Osmolality,Calculated 282.4 MOS/KG (273-304)
[2020-01-26 07:44] LABS: ABG Base Excess 4.6 MMOL/L (-2.5-2.5); ABG HCO3 28.6 MMOL/L (20-26); ABG Oxygen Saturation 99.6 % (95-100); ABG PCO2 41.6 MM HG (35-48); ABG PH 7.451 (7.35-7.45); ABG TCO2 26.7 MMOL/L (23-27); Glucose Heart Surgery 141 MG/DL (74-106); Hemoglobin Heart Surgery 8.7 G/DL (14.0-18.0); Ionized Calcium Arterial 1.22 MMOL/L (1.21-1.46); PCO2 Patient Temp Arterial 41.6 MMHG; PH Patient Temp Arterial 7.451; Patient Temperature 37 CELCIUS; Potassium Heart/CVR 4.2 MMOL/L (3.5-5.1); Sodium Heart/CVR 139 MMOL/L (135-145)
[2020-01-26 08:08] LABS: Bilirubin,Urine Negative (Negative); Blood, Urine Moderate mg/dL (Negative); Glucose,Urine (UA) Negative (Negative); Ketones,Urine Negative (Negative); Mucus,Urine Occasional /LPF (Occasional); Nitrite,Urine Negative (Negative); Protein,Urine 30 MG/DL; RBC,Urine 34 /HPF (0-4); Squamous Epithelial Cell,Urine Occasional /HPF (0-10); Urine Appearance CLOUDY (Clear); Urine Color Amber (Yellow); Urine Specific Gravity 1.016 (1.001-1.035); Urine Urobilinogen < 2.0 EU/DL (0.2-1.0); WBC,Urine 599 /HPF (0-6)
[2020-01-26] MEDS ORDERED: SODIUM BICARBONATE 50 MEQ/50 ML VIAL IV ONE ×2 (08:42→10:19)
[2020-01-26] MEDS ORDERED: NITROPRUSSIDE 50 MG/2 ML VIAL ONE (08:42)
[2020-01-26] MEDS ORDERED: POTASSIUM CHLORIDE RIDER 100 ML IV ONE (08:43)
[2020-01-26] MEDS ORDERED: CALCIUM CHLORIDE 1,000 MG/10 ML SYRINGE IV ONE (08:43)
[2020-01-26] MEDS ORDERED: PHENYLEPHRINE DRIP 40 MG/250 ML PREMIX IV ONE (08:43)
[2020-01-26] MEDS ORDERED: ALBUMIN 5% 12.5 GM/250 ML VIAL IV ONE (08:44)
[2020-01-26 09:10] LABS: Hematocrit Heart Surgery 21.7 PERCENT (42-52); Hemoglobin Heart Surgery 6.9 G/DL (14.0-18.0); PCO2 Patient Temp Venous 35.8 MM HG; PH Patient Temp Venous 7.489; PO2 Patient Temp Venous 35.8 MM HG; Potassium Heart/CVR 4.7 MMOL/L (3.5-5.1); VBG HCO3 27.8 MEQ/L (24-28); VBG Oxygen Saturation 78.8 %; VBG PCO2 41.4 MMHG (41-51); VBG PH 7.444; VBG PO2 44.1 MMHG (17-40)
[2020-01-26 09:41] LABS: Hematocrit Heart Surgery 20.1 PERCENT (42-52); PCO2 Patient Temp Venous 34.5 MM HG; PH Patient Temp Venous 7.508; PO2 Patient Temp Venous 30.8 MM HG; Potassium Heart/CVR 4.9 MMOL/L (3.5-5.1); VBG Base Excess 4.4 MEQ/L (0-4); VBG Oxygen Saturation 67.4 %; VBG PH 7.478; VBG PO2 35.4 MMHG (17-40)
[2020-01-26 09:42] LABS: Hemoglobin Heart Surgery 6.4 G/DL (14.0-18.0)
[2020-01-26] MEDS ORDERED: SEVOFLURANE 1 UNIT/15 MINUTE INH ONE ×13 (09:44→11:26)
[2020-01-26] MEDS ORDERED: ALBUMIN 25% 25 GM/100 ML VIAL IV ONE (10:17)
[2020-01-26] MEDS ORDERED: MANNITOL 100 GM/500 ML BAG IV ONE (10:18)
[2020-01-26] MEDS ORDERED: methylPREDNISolone SOD SUC 1,000 MG/8 ML VIAL ONE (10:18)
[2020-01-26] MEDS ORDERED: PROTAMINE SULFATE 250 MG/25 ML VIAL IV ONE (10:18)
[2020-01-26] MEDS ORDERED: DEXTROSE 5% KCL 20 MEQ 20 MEQ/1,000 ML BAG IV ONE (10:18)
[2020-01-26] MEDS ORDERED: MAGNESIUM SULFATE 5 GM/10 ML VIAL IV ONE (10:18)
[2020-01-26] MEDS ORDERED: FUROSEMIDE 20 MG/2 ML VIAL ONE (10:19)
[2020-01-26] MEDS ORDERED: HEPARIN 10,000 UNIT/10 ML VIAL ONE (10:19)
[2020-01-26 10:26] LABS: ABG Base Excess 3.7 MMOL/L (-2.5-2.5); ABG HCO3 27.8 MMOL/L (20-26); ABG PCO2 37.8 MM HG (35-48); Glucose Heart Surgery 242 MG/DL (74-106); Hematocrit Heart Surgery 21.6 PERCENT (42-52); Hemoglobin Heart Surgery 6.9 G/DL (14.0-18.0); Ionized Calcium Arterial 1.34 MMOL/L (1.21-1.46); PCO2 Patient Temp Arterial 37.8 MMHG; Patient Temperature 37 CELCIUS; Potassium Heart/CVR 4.4 MMOL/L (3.5-5.1); Sodium Heart/CVR 135 MMOL/L (135-145)
[2020-01-26] MEDS: SODIUM CHLORIDE 0.45% 1,000 ML IV SCH ×2 (11:00)
[2020-01-26] MEDS: DOBUTamine 500 MG/250 ML PREMIX IV SCH (11:00)
[2020-01-26] MEDS ORDERED: INSULIN REGULAR DRIP 100 ML IV SCH (11:50)
[2020-01-26] MEDS ORDERED: INSULIN REGULAR 100 UNIT/ML IV PRN (11:50)
[2020-01-26] MEDS ORDERED: ONDANSETRON 4 MG/2 ML VIAL IV PRN (11:50)
[2020-01-26] MEDS ORDERED: POTASSIUM CHLORIDE RIDER 10 MEQ in PREMIX 1 EACH IV PRN (11:50)
[2020-01-26] MEDS ORDERED: POTASSIUM CHLORIDE RIDER 20 MEQ in PREMIX 1 EACH IV PRN (11:50)
[2020-01-26] MEDS ORDERED: NITROPRUSSIDE 100 MG in DEXTROSE 5% 250 ML IV PRN (11:50)
[2020-01-26] MEDS ORDERED: VECURONIUM 10 MG VIAL IV PRN ×2 (11:50)
[2020-01-26] MEDS ORDERED: INSULIN REGULAR 100 UNIT/ML IV ONE (11:50)
[2020-01-26] MEDS ORDERED: CALCIUM CHLORIDE 1,000 MG/10 ML SYRINGE IV PRN (11:50)
[2020-01-26] MEDS ORDERED: CHLORHEXIDINE 4% SOLN 118 ML BOTTLE TOP PRN (11:50)
[2020-01-26] MEDS ORDERED: PHENYLEPHRINE DRIP 40 MG/250 ML PREMIX IV PRN (11:50)
[2020-01-26] MEDS ORDERED: MAGNESIUM SULF RIDER 4 GM in PREMIX 1 EACH IV PRN (11:50)
[2020-01-26] MEDS ORDERED: ACETAMINOPHEN 650 MG SUPP RECTAL PRN (11:50)
[2020-01-26] MEDS ORDERED: MIDAZOLAM 2 MG/2 ML VIAL IV PRN (11:50)
[2020-01-26] MEDS ORDERED: MORPHINE 10 MG/1 ML VIAL IV PRN (11:50)
[2020-01-26] MEDS ORDERED: MIDAZOLAM 10 MG/2 ML VIAL IV PRN (11:50)
[2020-01-26] MEDS ORDERED: MAGNESIUM SULF RIDER 2 GM in PREMIX 1 EACH IV PRN (11:50)
[2020-01-26] MEDS ORDERED: DEXTROSE 50% 25 GM/50 ML VIAL IV PRN ×2 (11:50)
[2020-01-26 11:53] LABS: ABG Base Excess 4.1 MMOL/L (-2.5-2.5); ABG HCO3 28.1 MMOL/L (20-26); ABG Oxygen Saturation 98.1 % (95-100); ABG PCO2 36.3 MM HG (35-48); ABG PH 7.488 (7.35-7.45); ABG PO2 93.1 MM HG (80-95); ABG TCO2 25.6 MMOL/L (23-27); Glucose Heart Surgery 213 MG/DL (74-106); Hematocrit Heart Surgery 25.4 PERCENT (42-52); Hemoglobin Heart Surgery 8.2 G/DL (14.0-18.0); Potassium Heart/CVR 4.1 MMOL/L (3.5-5.1)
[2020-01-26 12:03] LABS: Basophils # 0.1 10*3/uL (0.0-0.2); Basophils % 0.3 % (0.0-0.8); Eosinophils # 0.2 10*3/uL (0.0-0.87); Eosinophils % 1.4 % (0.00-10.9); Hematocrit 25.3 VOL% (42.0-52.0); Hemoglobin 8.2 GM/DL (14.0-18.0); Immature Granulocytes % 1.6 %; Immature Granulocytes Absolute 0.24 #; Lymphocytes % 6.5 % (21.2-54.2); Mean Corpuscular HGB Conc 32.4 GM/DL (32-36); Mean Corpuscular Volume 74.4 FL (87-102); Mean Platelet Volume 10.5 FL (9.6-12.0); Monocytes % 5.2 % (1.7-12.7); Red Cell Distribution Width 15.9 % (9.3-17.3)
[2020-01-26 12:10] LABS: Platelet Count 620 T/CUMM (130-400); White Blood Count 15.2 T/CUMM (4-12)
[2020-01-26 12:22] LABS: INR 1.3; Partial Thromboplastin Time 30.8 SECS (23.9-33.8)
[2020-01-26 12:29] LABS: Albumin 2.7 G/DL (3.4-5.0); Bilirubin,Total 0.9 MG/DL (0.2-1.0); Calcium 9.6 MG/DL (8.5-10.1); Osmolality,Calculated 280.7 MOS/KG (273-304); Total Protein 7.3 G/DL (6.4-8.3)
[2020-01-26 12:50] LABS: CKMB % 6.2 %
[2020-01-26 12:51] LABS: Troponin I 7.21 NG/ML (0.00-0.045)
[2020-01-26] MEDS: FOLIC ACID 1 MG TABLET PO SCH (13:47)
[2020-01-26] MEDS: FUROSEMIDE 40 MG/4 ML VIAL IV SCH (13:47)
[2020-01-26] MEDS: ASPIRIN CHEW 81 MG TABLET PO SCH (13:47)
[2020-01-26] MEDS: POTASSIUM CHLORIDE 20 MEQ TABLET PO SCH (13:47)
[2020-01-26] MEDS: THIAMINE 100 MG TABLET PO SCH (13:48)
[2020-01-26] MEDS: CHLORHEXIDINE 0.12% ORAL RINSE 60 ML BOTTLE SWISH/SPIT SCH ×2 (13:48→20:32)
[2020-01-26] MEDS: ALBUMIN 5% 12.5 GM in PREMIX 1 EACH IV PRN ×2 (14:15→18:24)
[2020-01-26 15:14] LABS: ABG HCO3 27.1 MMOL/L (20-26); ABG Oxygen Saturation 99.3 % (95-100); ABG PCO2 38.3 MM HG (35-48); ABG PH 7.455 (7.35-7.45); ABG TCO2 24.5 MMOL/L (23-27); Glucose Heart Surgery 216 MG/DL (74-106); Hematocrit Heart Surgery 29.9 PERCENT (42-52); Hemoglobin Heart Surgery 9.7 G/DL (14.0-18.0); Potassium Heart/CVR 4.6 MMOL/L (3.5-5.1)
[2020-01-26 15:50] LABS: VBG Base Excess 2.8 MEQ/L (0-4); VBG HCO3 26.9 MEQ/L (24-28); VBG Oxygen Saturation 96.3 %; VBG PCO2 42.1 MMHG (41-51); VBG PH 7.423; VBG PO2 79.7 MMHG (17-40)
[2020-01-26 16:27] LABS: Hemoglobin Heart Surgery 9.7 G/DL (14.0-18.0); PCO2 Patient Temp Venous 40.5 MM HG; PH Patient Temp Venous 7.421; Potassium Heart/CVR 4.9 MMOL/L (3.5-5.1); VBG Base Excess 1.8 MEQ/L (0-4); VBG HCO3 25.9 MEQ/L (24-28); VBG Oxygen Saturation 92.2 %; VBG PCO2 40.5 MMHG (41-51); VBG PH 7.421
[2020-01-26] MEDS: MORPHINE 4 MG/1 ML VIAL IV PRN ×2 (17:03→21:30)
[2020-01-26] MEDS: CEFUROXIME INJ 1,500 MG in SODIUM CHLORIDE 0.9% 100 ML IV SCH (17:58)
[2020-01-26] MEDS: LACTATED RINGERS 250 ML IV PRN ×2 (18:00→18:16)
[2020-01-26 18:36] LABS: ABG Base Excess 2.6 MMOL/L (-2.5-2.5); ABG HCO3 26.8 MMOL/L (20-26); ABG Oxygen Saturation 99.6 % (95-100); ABG PCO2 37.6 MM HG (35-48); ABG PH 7.456 (7.35-7.45); ABG TCO2 24.4 MMOL/L (23-27); Glucose Heart Surgery 168 MG/DL (74-106); Potassium Heart/CVR 4.6 MMOL/L (3.5-5.1)
[2020-01-26 20:53] LABS: ABG Base Excess 2.3 MMOL/L (-2.5-2.5); ABG HCO3 26.5 MMOL/L (20-26); ABG Oxygen Saturation 99.4 % (95-100); ABG PCO2 37.9 MM HG (35-48); ABG PH 7.449 (7.35-7.45); ABG TCO2 23.9 MMOL/L (23-27); Glucose Heart Surgery 124 MG/DL (74-106); Hematocrit Heart Surgery 30.2 PERCENT (42-52); Hemoglobin Heart Surgery 9.7 G/DL (14.0-18.0); Potassium Heart/CVR 4.6 MMOL/L (3.5-5.1)
[2020-01-26] MEDS ORDERED: FUROSEMIDE 40 MG/4 ML VIAL IV ONE (21:07)
[2020-01-26 21:34] LABS: CKMB % 2.7 %
[2020-01-26 21:35] LABS: Troponin I 5.12 NG/ML (0.00-0.045)
[2020-01-26 22:19] LABS: ABG Base Excess 0.2 MMOL/L (-2.5-2.5); ABG HCO3 24.7 MMOL/L (20-26); ABG Oxygen Saturation 98.9 % (95-100); ABG PH 7.418 (7.35-7.45); ABG TCO2 22.2 MMOL/L (23-27); Glucose Heart Surgery 186 MG/DL (74-106); Hematocrit Heart Surgery 31.5 PERCENT (42-52); Hemoglobin Heart Surgery 10.2 G/DL (14.0-18.0); Potassium Heart/CVR 4.6 MMOL/L (3.5-5.1)
[2020-01-26 23:14] LABS: ABG Base Excess 0.8 MMOL/L (-2.5-2.5); ABG HCO3 25.1 MMOL/L (20-26); ABG Oxygen Saturation 98.6 % (95-100); ABG PCO2 39.9 MM HG (35-48); ABG PH 7.411 (7.35-7.45); ABG TCO2 22.9 MMOL/L (23-27); Glucose Heart Surgery 183 MG/DL (74-106); Hematocrit Heart Surgery 31.9 PERCENT (42-52); Hemoglobin Heart Surgery 10.3 G/DL (14.0-18.0); Potassium Heart/CVR 4.3 MMOL/L (3.5-5.1)
[2020-01-27 00:44] LABS: ABG Base Excess 1.2 MMOL/L (-2.5-2.5); ABG HCO3 25.5 MMOL/L (20-26); ABG Oxygen Saturation 99.1 % (95-100); ABG PCO2 49.5 MM HG (35-48); ABG PH 7.352 (7.35-7.45); ABG TCO2 24.9 MMOL/L (23-27); Glucose Heart Surgery 171 MG/DL (74-106); Hematocrit Heart Surgery 32.2 PERCENT (42-52); Hemoglobin Heart Surgery 10.4 G/DL (14.0-18.0); Potassium Heart/CVR 4.5 MMOL/L (3.5-5.1)
[2020-01-27 03:29] LABS: ABG Base Excess 0.7 MMOL/L (-2.5-2.5); ABG Oxygen Saturation 93.1 % (95-100); ABG PCO2 46.8 MM HG (35-48); ABG PH 7.361 (7.35-7.45); ABG PO2 70.4 MM HG (80-95); ABG TCO2 24.1 MMOL/L (23-27); Glucose Heart Surgery 170 MG/DL (74-106); Hematocrit Heart Surgery 32.3 PERCENT (42-52); Hemoglobin Heart Surgery 10.5 G/DL (14.0-18.0); Potassium Heart/CVR 4.7 MMOL/L (3.5-5.1)
[2020-01-27 03:35] LABS: Hematocrit 31.7 VOL% (42.0-52.0); Immature Granulocytes % 0.7 %; Immature Granulocytes Absolute 0.12 #; Lymphocytes # 0.8 10*3/uL (1.4-4.0); Lymphocytes % 4.5 % (21.2-54.2); Mean Corpuscular HGB Conc 32.8 GM/DL (32-36); Mean Corpuscular Volume 77.1 FL (87-102); Monocytes % 3.7 % (1.7-12.7); Neutrophils % 91.1 % (38.7-73.9); Red Cell Distribution Width 16.6 % (9.3-17.3); White Blood Count 17.5 T/CUMM (4-12)
[2020-01-27 03:39] LABS: Hemoglobin 10.4 GM/DL (14.0-18.0); Platelet Count 661 T/CUMM (130-400); Red Blood Count 4.11 MC/CUMM (3.8-5.5)
[2020-01-27 03:57] LABS: Albumin 3.1 G/DL (3.4-5.0); Bilirubin,Direct 0.32 MG/DL (0.0-0.20); Bilirubin,Total 0.7 MG/DL (0.2-1.0); Calcium 8.8 MG/DL (8.5-10.1); Osmolality,Calculated 285.3 MOS/KG (273-304); Total Protein 7.4 G/DL (6.4-8.3)
[2020-01-27 03:58] LABS: CKMB % 1.8 %
[2020-01-27 04:15] LABS: Lymphocytes 3 % (20-55); Platelet Estimate Increased; Segmented Neutrophils 93 % (50-85); Total Cells Counted 100
[2020-01-27 04:16] LABS: Hypochromasia 1+
[2020-01-27] MEDS: CEFUROXIME INJ 1,500 MG in SODIUM CHLORIDE 0.9% 100 ML IV SCH ×2 (06:10→18:19)
[2020-01-27] MEDS ORDERED: DOBUTamine 500 MG/250 ML PREMIX IV ONE (06:32)
[2020-01-27] MEDS: CEFEPIME 1,000 MG in SODIUM CHLORIDE 0.9% 100 ML IV SCH ×3 (06:40→22:42)
[2020-01-27] MEDS ORDERED: ALBUTEROL/IPRATROPIUM 3 ML NEB RESP TX PRN (07:24)
[2020-01-27] MEDS: INSULIN REGULAR 100 UNIT/ML SUBCUT SCH ×2 (08:01→13:14)
[2020-01-27] MEDS: carvediloL 6.25 MG TABLET PO SCH ×2 (08:20→21:15)
[2020-01-27] MEDS: CHLORHEXIDINE 0.12% ORAL RINSE 60 ML BOTTLE SWISH/SPIT SCH ×2 (08:23→21:15)
[2020-01-27] MEDS: MORPHINE 4 MG/1 ML VIAL IV PRN (09:11)
[2020-01-27] MEDS: ASPIRIN EC 325 MG TABLET PO SCH (09:13)
[2020-01-27] MEDS ORDERED: FUROSEMIDE 40 MG/4 ML VIAL IV ONE (09:24)
[2020-01-27] MEDS ORDERED: carvediloL 6.25 MG TABLET PO ONE (09:25)
[2020-01-27] MEDS: ASCORBIC ACID 500 MG TABLET PO SCH ×2 (11:22→21:15)
[2020-01-27] MEDS: LOSARTAN 25 MG TABLET PO SCH (11:23)
[2020-01-27] MEDS ORDERED: MAGNESIUM SULF RIDER 2 GM in PREMIX 1 EACH IV PRN (13:09)
[2020-01-27] MEDS ORDERED: DEXTROSE 50% 25 GM/50 ML VIAL IV PRN (13:09)
[2020-01-27] MEDS ORDERED: ONDANSETRON 4 MG/2 ML VIAL IV PRN (13:09)
[2020-01-27] MEDS ORDERED: MAGNESIUM SULF RIDER 4 GM in PREMIX 1 EACH IV PRN (13:09)
[2020-01-27] MEDS ORDERED: ACETAMINOPHEN 325 MG TABLET PO PRN (13:09)
[2020-01-27] MEDS ORDERED: ZALEPLON 5 MG CAPSULE PO PRN (13:09)
[2020-01-27] MEDS ORDERED: GLUCAGON 1 MG VIAL IM PRN (13:09)
[2020-01-27] MEDS ORDERED: SODIUM CHLOR 0.45% KCL 20 MEQ 20 MEQ/1,000 ML BAG IV SCH (13:09)
[2020-01-27] MEDS ORDERED: POTASSIUM CHLORIDE 20 MEQ TABLET PO PRN (13:09)
[2020-01-27] MEDS ORDERED: MAGNESIUM HYDROXIDE SUSP 30 ML UDCUP PO PRN (13:09)
[2020-01-27] MEDS: SODIUM CHLORIDE 0.45% 1,000 ML IV SCH ×2 (13:13→13:14)
[2020-01-27] MEDS: DOBUTamine 500 MG/250 ML PREMIX IV SCH (13:14)
[2020-01-27] MEDS: oxyCODONE/ACETAMINOPHEN 5-325 MG TABLET PO PRN ×3 (13:52→22:39)
[2020-01-27 20:00] LABS: CKMB % 1.5 %
[2020-01-27 20:01] LABS: Troponin I 3.56 NG/ML (0.00-0.045)
[2020-01-27] MEDS: ALUMINUM/MAGNES/SIMETH MAX STR 30 ML UDCUP PO PRN (21:13)
[2020-01-27] MEDS: ROSUVASTATIN 20 MG TABLET PO SCH (21:15)
[2020-01-27] MEDS: TAMSULOSIN 0.4 MG CAPSULE PO SCH (21:15)
[2020-01-28] MEDS: ALUMINUM/MAGNES/SIMETH MAX STR 30 ML UDCUP PO PRN (05:17)
[2020-01-28 05:47] LABS: Basophils % 0.2 % (0.0-0.8); Eosinophils % 0.1 % (0.00-10.9); Hematocrit 31.7 VOL% (42.0-52.0); Hemoglobin 10.2 GM/DL (14.0-18.0); Immature Granulocytes % 0.7 %; Immature Granulocytes Absolute 0.13 #; Lymphocytes # 1.4 10*3/uL (1.4-4.0); Lymphocytes % 7.6 % (21.2-54.2); Mean Corpuscular HGB Conc 32.2 GM/DL (32-36); Mean Corpuscular Volume 79.4 FL (87-102); Mean Platelet Volume 10.7 FL (9.6-12.0); Monocytes % 7.2 % (1.7-12.7); Neutrophils % 84.2 % (38.7-73.9); Platelet Count 609 T/CUMM (130-400); Red Blood Count 3.99 MC/CUMM (3.8-5.5); Red Cell Distribution Width 17.3 % (9.3-17.3)
[2020-01-28] MEDS ORDERED: FUROSEMIDE 40 MG/4 ML VIAL IV ONE ×2 (06:00→09:40)
[2020-01-28] MEDS: CEFEPIME 1,000 MG in SODIUM CHLORIDE 0.9% 100 ML IV SCH ×2 (06:02→15:28)
[2020-01-28 06:20] LABS: Albumin 2.8 G/DL (3.4-5.0); Bilirubin,Direct 0.23 MG/DL (0.0-0.20); Bilirubin,Indirect 0.7 MG/DL (0.0-1.0); Bilirubin,Total 0.9 MG/DL (0.2-1.0); CKMB % 1.4 %; Calcium 8.7 MG/DL (8.5-10.1); Osmolality,Calculated 273.4 MOS/KG (273-304); Total Protein 7.5 G/DL (6.4-8.3)
[2020-01-28 06:21] LABS: Troponin I 2.87 NG/ML (0.00-0.045)
[2020-01-28] MEDS: ALBUTEROL/IPRATROPIUM 3 ML NEB RESP TX SCH ×3 (08:34→19:00)
[2020-01-28] MEDS: oxyCODONE/ACETAMINOPHEN 5-325 MG TABLET PO PRN (08:39)
[2020-01-28] MEDS: ASPIRIN EC 325 MG TABLET PO SCH (08:39)
[2020-01-28] MEDS: FENOFIBRATE 145 MG TABLET PO SCH (08:39)
[2020-01-28] MEDS: DOCUSATE SODIUM 100 MG CAPSULE PO SCH (08:39)
[2020-01-28] MEDS: THIAMINE 100 MG TABLET PO SCH (08:40)
[2020-01-28] MEDS: FERROUS SULFATE 325 MG TABLET PO SCH (08:40)
[2020-01-28] MEDS: ASCORBIC ACID 500 MG TABLET PO SCH ×2 (08:40→20:31)
[2020-01-28] MEDS: FOLIC ACID 1 MG TABLET PO SCH (08:40)
[2020-01-28] MEDS: amLODIPine 5 MG TABLET PO SCH (08:40)
[2020-01-28] MEDS: CHLORHEXIDINE 0.12% ORAL RINSE 60 ML BOTTLE SWISH/SPIT SCH ×2 (08:41→20:32)
[2020-01-28] MEDS: LOSARTAN 25 MG TABLET PO SCH (08:41)
[2020-01-28] MEDS: carvediloL 6.25 MG TABLET PO SCH ×2 (08:41→20:31)
[2020-01-28] MEDS: PANTOPRAZOLE 40 MG TABLET PO SCH (08:41)
[2020-01-28] MEDS: methylPREDNISolone SOD SUC 125 MG/2 ML VIAL IV SCH ×2 (09:50→17:24)
[2020-01-28] MEDS ORDERED: SIMETHICONE CHEW 125 MG TABLET PO PRN (10:27)
[2020-01-28] MEDS: TAMSULOSIN 0.4 MG CAPSULE PO SCH (20:31)
[2020-01-28] MEDS: ROSUVASTATIN 20 MG TABLET PO SCH (20:42)
[2020-01-29] MEDS: ALBUTEROL/IPRATROPIUM 3 ML NEB RESP TX SCH ×4 (00:12→19:39)
[2020-01-29] MEDS: methylPREDNISolone SOD SUC 125 MG/2 ML VIAL IV SCH ×3 (01:25→16:58)
[2020-01-29] MEDS: CEFEPIME 1,000 MG in SODIUM CHLORIDE 0.9% 100 ML IV SCH ×4 (02:25→22:25)
[2020-01-29 06:22] LABS: Basophils % 0.1 % (0.0-0.8); Hematocrit 35.3 VOL% (42.0-52.0); Hemoglobin 11.2 GM/DL (14.0-18.0); Immature Granulocytes % 0.7 %; Immature Granulocytes Absolute 0.12 #; Lymphocytes # 0.8 10*3/uL (1.4-4.0); Lymphocytes % 4.8 % (21.2-54.2); Mean Corpuscular HGB Conc 31.7 GM/DL (32-36); Mean Corpuscular Volume 78.8 FL (87-102); Mean Platelet Volume 10.9 FL (9.6-12.0); Monocytes % 4.1 % (1.7-12.7); Neutrophils % 90.3 % (38.7-73.9); Platelet Count 665 T/CUMM (130-400); Red Blood Count 4.48 MC/CUMM (3.8-5.5); Red Cell Distribution Width 17.5 % (9.3-17.3); White Blood Count 16.9 T/CUMM (4-12)
[2020-01-29 06:46] LABS: Alanine Aminotransferase 28 U/L (16-61); Albumin 2.7 G/DL (3.4-5.0); Alkaline Phosphatase 89 U/L (45-117); Aspartate Amino Transferase 15 U/L (0-37); Bilirubin,Indirect 0.7 MG/DL (0.0-1.0); Blood Urea Nitrogen 28 MG/DL (7-18); Calcium 9.1 MG/DL (8.5-10.1); Estimated Glom Filtration Rate 86 ML/MIN; Glucose 181 MG/DL (74-106); Osmolality,Calculated 278.2 MOS/KG (273-304); Total Protein 7.9 G/DL (6.4-8.3)
[2020-01-29 08:45] LABS: Band Neutrophils 2 % (0-10); Lymphocytes 6 % (20-55); Segmented Neutrophils 88 % (50-85); Total Cells Counted 100
[2020-01-29 08:46] LABS: Anisocytosis 1+; Hypochromasia 2+; Microcytosis 1+; Platelet Estimate Increased; Target Cells 2+
[2020-01-29] MEDS: FOLIC ACID 1 MG TABLET PO SCH (08:47)
[2020-01-29] MEDS: DOCUSATE SODIUM 100 MG CAPSULE PO SCH (08:47)
[2020-01-29] MEDS: ASPIRIN EC 325 MG TABLET PO SCH (08:47)
[2020-01-29] MEDS: FUROSEMIDE 40 MG TABLET PO SCH (08:47)
[2020-01-29] MEDS: ASCORBIC ACID 500 MG TABLET PO SCH ×2 (08:47→21:06)
[2020-01-29] MEDS: carvediloL 6.25 MG TABLET PO SCH ×2 (08:47→21:06)
[2020-01-29] MEDS: THIAMINE 100 MG TABLET PO SCH (08:47)
[2020-01-29] MEDS: FERROUS SULFATE 325 MG TABLET PO SCH (08:47)
[2020-01-29] MEDS: FENOFIBRATE 145 MG TABLET PO SCH (08:48)
[2020-01-29] MEDS: amLODIPine 5 MG TABLET PO SCH (08:48)
[2020-01-29] MEDS: CHLORHEXIDINE 0.12% ORAL RINSE 60 ML BOTTLE SWISH/SPIT SCH ×2 (08:48→21:11)
[2020-01-29] MEDS: LOSARTAN 25 MG TABLET PO SCH (08:48)
[2020-01-29] MEDS: PANTOPRAZOLE 40 MG TABLET PO SCH (08:48)
[2020-01-29] MEDS: ALUMINUM/MAGNES/SIMETH MAX STR 30 ML UDCUP PO PRN (08:50)
[2020-01-29] MEDS ORDERED: FUROSEMIDE 20 MG TABLET PO SCH (09:00)
[2020-01-29] MEDS: oxyCODONE/ACETAMINOPHEN 5-325 MG TABLET PO PRN (12:55)
[2020-01-29] MEDS: ROSUVASTATIN 20 MG TABLET PO SCH (21:06)
[2020-01-29] MEDS: TAMSULOSIN 0.4 MG CAPSULE PO SCH (21:06)
[2020-01-30] MEDS: ALBUTEROL/IPRATROPIUM 3 ML NEB RESP TX SCH ×4 (00:53→20:04)
[2020-01-30] MEDS: methylPREDNISolone SOD SUC 125 MG/2 ML VIAL IV SCH ×3 (01:55→17:52)
[2020-01-30 05:41] LABS: Basophils % 0.1 % (0.0-0.8); Hematocrit 32.9 VOL% (42.0-52.0); Hemoglobin 10.6 GM/DL (14.0-18.0); Immature Granulocytes % 0.8 %; Immature Granulocytes Absolute 0.14 #; Lymphocytes # 1.4 10*3/uL (1.4-4.0); Lymphocytes % 7.9 % (21.2-54.2); Mean Corpuscular HGB Conc 32.2 GM/DL (32-36); Mean Corpuscular Volume 78.3 FL (87-102); Mean Platelet Volume 10.5 FL (9.6-12.0); Monocytes % 5.7 % (1.7-12.7); Neutrophils % 85.5 % (38.7-73.9); Platelet Count 655 T/CUMM (130-400); Red Cell Distribution Width 17.8 % (9.3-17.3); White Blood Count 17.2 T/CUMM (4-12)
[2020-01-30 05:57] LABS: Calcium 8.8 MG/DL (8.5-10.1)
[2020-01-30] MEDS: ASPIRIN EC 325 MG TABLET PO SCH (08:16)
[2020-01-30] MEDS: FERROUS SULFATE 325 MG TABLET PO SCH (08:17)
[2020-01-30] MEDS: FUROSEMIDE 40 MG TABLET PO SCH (08:17)
[2020-01-30] MEDS: LOSARTAN 25 MG TABLET PO SCH (08:17)
[2020-01-30] MEDS: DOCUSATE SODIUM 100 MG CAPSULE PO SCH (08:17)
[2020-01-30] MEDS: amLODIPine 5 MG TABLET PO SCH (08:17)
[2020-01-30] MEDS: FOLIC ACID 1 MG TABLET PO SCH (08:17)
[2020-01-30] MEDS: PANTOPRAZOLE 40 MG TABLET PO SCH (08:18)
[2020-01-30] MEDS: carvediloL 6.25 MG TABLET PO SCH ×2 (08:18→20:37)
[2020-01-30] MEDS: FENOFIBRATE 145 MG TABLET PO SCH (08:18)
[2020-01-30] MEDS: THIAMINE 100 MG TABLET PO SCH (08:18)
[2020-01-30] MEDS: ASCORBIC ACID 500 MG TABLET PO SCH ×2 (08:18→20:37)
[2020-01-30] MEDS: CHLORHEXIDINE 0.12% ORAL RINSE 60 ML BOTTLE SWISH/SPIT SCH ×2 (08:22→20:37)
[2020-01-30] MEDS: ROSUVASTATIN 20 MG TABLET PO SCH (20:37)
[2020-01-30] MEDS: TAMSULOSIN 0.4 MG CAPSULE PO SCH (20:37)
[2020-01-31] MEDS: methylPREDNISolone SOD SUC 125 MG/2 ML VIAL IV SCH (01:05)
[2020-01-31] MEDS: ALBUTEROL/IPRATROPIUM 3 ML NEB RESP TX SCH ×2 (01:30→07:40)
[2020-01-31 07:40] VITALS: BP 136/78
[2020-01-31 08:18] LABS: Basophils % 0.1 % (0.0-0.8); Hematocrit 36.6 VOL% (42.0-52.0); Hemoglobin 11.5 GM/DL (14.0-18.0); Immature Granulocytes % 0.6 %; Immature Granulocytes Absolute 0.09 #; Lymphocytes # 1.2 10*3/uL (1.4-4.0); Lymphocytes % 7.3 % (21.2-54.2); Mean Corpuscular HGB Conc 31.4 GM/DL (32-36); Mean Corpuscular Volume 80.1 FL (87-102); Mean Platelet Volume 10.3 FL (9.6-12.0); Monocytes % 4.9 % (1.7-12.7); Neutrophils % 87.1 % (38.7-73.9); Platelet Count 737 T/CUMM (130-400); Red Blood Count 4.57 MC/CUMM (3.8-5.5); Red Cell Distribution Width 18.3 % (9.3-17.3); White Blood Count 15.9 T/CUMM (4-12)
[2020-01-31 08:39] LABS: Alanine Aminotransferase 50 U/L (16-61); Albumin 2.8 G/DL (3.4-5.0); Alkaline Phosphatase 82 U/L (45-117); Aspartate Amino Transferase 24 U/L (0-37); Bilirubin,Total < 0.39 MG/DL (0.2-1.0); Blood Urea Nitrogen 28 MG/DL (7-18); Estimated Glom Filtration Rate 87 ML/MIN; Glucose 150 MG/DL (74-106); Osmolality,Calculated 285.5 MOS/KG (273-304); Total Protein 7.8 G/DL (6.4-8.3)
[2020-01-31 08:42] LABS: Bilirubin,Indirect 0.2 MG/DL (0.0-1.0); Troponin I 0.934 NG/ML (0.00-0.045)
[2020-01-31] MEDS ORDERED: predniSONE 20 MG TABLET PO SCH (09:00)
[2020-01-31] MEDS: DOCUSATE SODIUM 100 MG CAPSULE PO SCH (09:37)
[2020-01-31] MEDS: carvediloL 6.25 MG TABLET PO SCH (09:37)
[2020-01-31] MEDS: CHLORHEXIDINE 0.12% ORAL RINSE 60 ML BOTTLE SWISH/SPIT SCH (09:37)
[2020-01-31] MEDS: FOLIC ACID 1 MG TABLET PO SCH (09:38)
[2020-01-31] MEDS: PANTOPRAZOLE 40 MG TABLET PO SCH (09:38)
[2020-01-31] MEDS: THIAMINE 100 MG TABLET PO SCH (09:38)
[2020-01-31] MEDS: FERROUS SULFATE 325 MG TABLET PO SCH (09:38)
[2020-01-31] MEDS: LOSARTAN 25 MG TABLET PO SCH (09:38)
[2020-01-31] MEDS: FENOFIBRATE 145 MG TABLET PO SCH (09:38)
[2020-01-31] MEDS: FUROSEMIDE 40 MG TABLET PO SCH (09:38)
[2020-01-31] MEDS: amLODIPine 5 MG TABLET PO SCH (09:38)
[2020-01-31] MEDS: ASPIRIN EC 325 MG TABLET PO SCH (09:38)
[2020-01-31] MEDS: ASCORBIC ACID 500 MG TABLET PO SCH (09:42)
== END 2020-01-31 11:45 | disposition home health service (06) | DRG 233 ==
LOC: N.ED 20:49 → SUATTDRO 23:10 → N.EDINP 23:10 → N.TELES 01-21 00:47 → N.CVR 01-26 10:52 → N.TELES 01-27 16:18
PROVIDERS: ADMIT Emergency Medicine

== ENCOUNTER 2020-02-08 18:03 | Inpatient (IN) ==
[2020-02-08] MEDS ORDERED: SODIUM CHLORIDE 0.9% 500 ML IV STA (18:15)
[2020-02-08 18:48] LABS: Basophils % 0.2 % (0.0-0.8); Hematocrit 28.5 VOL% (42.0-52.0); Hemoglobin 8.8 GM/DL (14.0-18.0); Immature Granulocytes % 0.7 %; Immature Granulocytes Absolute 0.09 #; Lymphocytes # 1.7 10*3/uL (1.4-4.0); Lymphocytes % 14.1 % (21.2-54.2); Mean Corpuscular HGB Conc 30.9 GM/DL (32-36); Mean Corpuscular Volume 79.8 FL (87-102); Mean Platelet Volume 10.5 FL (9.6-12.0); Monocytes % 6.3 % (1.7-12.7); Neutrophils % 78.7 % (38.7-73.9); Platelet Count 510 T/CUMM (130-400); Red Blood Count 3.57 MC/CUMM (3.8-5.5); White Blood Count 12.3 T/CUMM (4-12)
[2020-02-08 19:03] LABS: INR 1.2
[2020-02-08 19:12] LABS: Albumin 2.9 G/DL (3.4-5.0); Bilirubin,Total 1.2 MG/DL (0.2-1.0); Calcium 8.9 MG/DL (8.5-10.1); Osmolality,Calculated 279.4 MOS/KG (273-304); Total Protein 7.8 G/DL (6.4-8.3)
[2020-02-08 20:30] LABS: ABG Base Excess 1.1 MMOL/L (-2.5-2.5); ABG HCO3 25.4 MMOL/L (20-26); ABG Oxygen Saturation 99.9 % (95-100); ABG PCO2 52.6 MM HG (35-48); ABG PH 7.331 (7.35-7.45); ABG TCO2 25.4 MMOL/L (23-27)
[2020-02-08] MEDS ORDERED: ROCURONIUM 100 MG/10 ML VIAL IV STA (20:33)
[2020-02-08] MEDS ORDERED: SODIUM CHLORIDE 0.9% 1,000 ML IV PRN (20:33)
[2020-02-08] MEDS ORDERED: PIPERACILLIN/TAZOBACTAM 3,375 MG in SODIUM CHLORIDE 0.9% 100 ML IV STA (20:41)
[2020-02-08] MEDS ORDERED: MORPHINE 4 MG/1 ML VIAL IV PRN (21:28)
[2020-02-08] MEDS ORDERED: ALBUTEROL 2.5 MG/3 ML NEB RESP TX PRN (21:28)
[2020-02-08] MEDS ORDERED: MIDAZOLAM 100 MG in SODIUM CHLORIDE 0.9% 80 ML IV PRN (21:28)
[2020-02-08] MEDS ORDERED: ONDANSETRON 4 MG/2 ML VIAL IV PRN (21:28)
[2020-02-08] MEDS: NOREPINEPHRINE 8 MG in SODIUM CHLORIDE 0.9% 242 ML IV PRN (21:34)
[2020-02-08] MEDS: ENOXAPARIN 40 MG/0.4 ML SYRINGE SUBCUT SCH (22:10)
[2020-02-08] MEDS: PANTOPRAZOLE 40 MG VIAL IV SCH (22:11)
[2020-02-08 23:56] VITALS: BP 115/73
[2020-02-09] MEDS ORDERED: LIDOCAINE 2% TOP JELLY 20 ML VIAL INTRAURETH ONE (01:15)
[2020-02-09] MEDS: NOREPINEPHRINE 8 MG in SODIUM CHLORIDE 0.9% 242 ML IV PRN ×6 (01:32→23:12)
[2020-02-09] MEDS ORDERED: SODIUM CHLORIDE 0.9% 500 ML IV ONE (01:39)
[2020-02-09] MEDS: VANCOMYCIN INJ 1,500 MG in SODIUM CHLORIDE 0.9% 500 ML IV SCH ×2 (02:35→14:47)
[2020-02-09 02:57] LABS: Amorphous Crystals,Urine Occasional /HPF (Few); Bacteria,Urine Occasional /HPF (Few); Bilirubin,Urine Negative (Negative); Blood, Urine Moderate mg/dL (Negative); Glucose,Urine (UA) Negative (Negative); Ketones,Urine Negative (Negative); Mucus,Urine Occasional /LPF (Occasional); Nitrite,Urine Negative (Negative); Protein,Urine Negative; Squamous Epithelial Cell,Urine Occasional /HPF (0-10); Urine Appearance CLOUDY (Clear); Urine Color Yellow (Yellow); Urine Urobilinogen < 2.0 EU/DL (0.2-1.0); WBC,Urine 4 /HPF (0-6)
[2020-02-09 03:22] LABS: Basophils % 0.1 % (0.0-0.8); Hematocrit 29.6 VOL% (42.0-52.0); Hemoglobin 9.6 GM/DL (14.0-18.0); Immature Granulocytes % 0.7 %; Immature Granulocytes Absolute 0.11 #; Lymphocytes # 1.8 10*3/uL (1.4-4.0); Lymphocytes % 11.2 % (21.2-54.2); Mean Corpuscular HGB Conc 32.4 GM/DL (32-36); Mean Corpuscular Volume 78.7 FL (87-102); Mean Platelet Volume 9.9 FL (9.6-12.0); Monocytes % 4.7 % (1.7-12.7); Neutrophils % 83.3 % (38.7-73.9); Platelet Count 417 T/CUMM (130-400); Red Blood Count 3.76 MC/CUMM (3.8-5.5); Red Cell Distribution Width 17.6 % (9.3-17.3); White Blood Count 15.9 T/CUMM (4-12)
[2020-02-09 03:33] LABS: INR 1.3; PT Patient Result 13.5 SECS (9.8-11.9)
[2020-02-09 03:43] LABS: Albumin 2.4 G/DL (3.4-5.0); Calcium 7.8 MG/DL (8.5-10.1); Osmolality,Calculated 289.8 MOS/KG (273-304); Total Protein 6.5 G/DL (6.4-8.3)
[2020-02-09 04:44] LABS: ABG Base Excess 2.6 MMOL/L (-2.5-2.5); ABG HCO3 26.8 MMOL/L (20-26); ABG PCO2 37.9 MM HG (35-48); ABG PH 7.454 (7.35-7.45); ABG TCO2 24.2 MMOL/L (23-27)
[2020-02-09 06:41] LABS: Troponin I 0.365 NG/ML (0.00-0.045)
[2020-02-09 09:29] LABS: Barbiturates Screen,Urine Negative (Negative); Benzodiazepines Screen,Urine Negative (Negative); Cannabinoid Screen,Urine Negative (Negative); Opiate Screen,Urine Negative (Negative); Phencyclidine Screen,Urine Negative (Negative)
[2020-02-09 09:43] LABS: Troponin I 0.391 NG/ML (0.00-0.045)
[2020-02-09] MEDS: PIPERACILLIN/TAZOBACTAM 3,375 MG in SODIUM CHLORIDE 0.9% 100 ML IV SCH ×2 (10:15→17:55)
[2020-02-09] MEDS ORDERED: LACTATED RINGERS 1,000 ML IV ONE (15:41)
[2020-02-09] MEDS ORDERED: ACETAMINOPHEN 325 MG/10.15 ML UDCUP PO PRN (15:41)
[2020-02-09] MEDS: PHENYLEPHRINE DRIP 40 MG/250 ML PREMIX IV PRN ×2 (19:28→23:26)
[2020-02-09] MEDS ORDERED: OMEGA 3 ACID ETHYL ESTERS 1 GM CAPSULE PO SCH (21:00)
[2020-02-09] MEDS ORDERED: ASCORBIC ACID 500 MG TABLET PO SCH (21:00)
[2020-02-09] MEDS ORDERED: TAMSULOSIN 0.4 MG CAPSULE PO SCH (21:00)
[2020-02-09] MEDS ORDERED: ROSUVASTATIN 20 MG TABLET PO SCH (21:00)
[2020-02-09] MEDS ORDERED: carvediloL 6.25 MG TABLET PO SCH (21:00)
[2020-02-09] MEDS: ALBUMIN 25% 12.5 GM in PREMIX 1 EACH IV SCH (21:43)
[2020-02-09] MEDS: ENOXAPARIN 40 MG/0.4 ML SYRINGE SUBCUT SCH (21:45)
[2020-02-09] MEDS: PANTOPRAZOLE 40 MG VIAL IV SCH (21:46)
[2020-02-09] MEDS ORDERED: ALBUMIN 25% 12.5 GM in PREMIX 1 EACH IV ONE (22:09)
[2020-02-09 22:17] LABS: ABG Base Excess -5.8 MMOL/L (-2.5-2.5); ABG HCO3 19.7 MMOL/L (20-26); ABG Oxygen Saturation 99.3 % (95-100); ABG PCO2 29.8 MM HG (35-48); ABG PH 7.394 (7.35-7.45); ABG TCO2 16.8 MMOL/L (23-27)
[2020-02-09] MEDS ORDERED: VASOPRESSIN 100 UNITS in SODIUM CHLORIDE 0.9% 95 ML IV PRN (22:22)
[2020-02-09 22:40] LABS: Albumin 2.4 G/DL (3.4-5.0); Bilirubin,Total 1.7 MG/DL (0.2-1.0); Calcium 8.2 MG/DL (8.5-10.1); Total Protein 6.3 G/DL (6.4-8.3)
[2020-02-09] MEDS ORDERED: INSULIN REGULAR 10 UNIT, CALCIUM GLUCONATE 1,000 MG in DEXTROSE 10% 250 ML IV ONE (22:54)
[2020-02-09] MEDS ORDERED: SODIUM BICARBONATE 50 MEQ/50 ML VIAL IV ONE ×2 (22:59→23:02)
[2020-02-09] MEDS ORDERED: SODIUM CHLORIDE 0.9% 1,000 ML IV ONE (23:10)
[2020-02-09] MEDS ORDERED: EPINEPHrine 1 MG/ML VIAL ONE (23:35)
[2020-02-10] MEDS: PHENYLEPHRINE DRIP 40 MG/250 ML PREMIX IV PRN ×2 (01:35→03:40)
[2020-02-10] MEDS: PIPERACILLIN/TAZOBACTAM 3,375 MG in SODIUM CHLORIDE 0.9% 100 ML IV SCH (01:36)
[2020-02-10] MEDS: VANCOMYCIN INJ 1,500 MG in SODIUM CHLORIDE 0.9% 500 ML IV SCH (02:22)
[2020-02-10] MEDS: NOREPINEPHRINE 8 MG in SODIUM CHLORIDE 0.9% 242 ML IV PRN (03:02)
[2020-02-10] MEDS: ALBUMIN 25% 12.5 GM in PREMIX 1 EACH IV SCH (04:25)
[2020-02-10 04:28] LABS: ABG Base Excess -8.3 MMOL/L (-2.5-2.5); ABG HCO3 17.7 MMOL/L (20-26); ABG Oxygen Saturation 99.4 % (95-100); ABG PCO2 35.9 MM HG (35-48); ABG PH 7.296 (7.35-7.45); ABG TCO2 16.4 MMOL/L (23-27)
[2020-02-10 04:45] LABS: Basophils % 0.1 % (0.0-0.8); Hematocrit 27.9 VOL% (42.0-52.0); Hemoglobin 8.8 GM/DL (14.0-18.0); Immature Granulocytes % 3.1 %; Immature Granulocytes Absolute 0.49 #; Lymphocytes # 2.1 10*3/uL (1.4-4.0); Lymphocytes % 12.8 % (21.2-54.2); Mean Corpuscular HGB Conc 31.5 GM/DL (32-36); Mean Corpuscular Volume 81.6 FL (87-102); Mean Platelet Volume 10.3 FL (9.6-12.0); Monocytes % 6.7 % (1.7-12.7); NRBC # 0.18 10*3/uL; Neutrophils % 77.3 % (38.7-73.9); Platelet Count 322 T/CUMM (130-400); Red Blood Count 3.42 MC/CUMM (3.8-5.5); Red Cell Distribution Width 18.5 % (9.3-17.3)
[2020-02-10] MEDS ORDERED: PHENYLEPHRINE INJ 160 MG in SODIUM CHLORIDE 0.9% 234 ML IV PRN (05:00)
[2020-02-10 05:07] LABS: Albumin 1.9 G/DL (3.4-5.0); Bilirubin,Total 1.8 MG/DL (0.2-1.0); Osmolality,Calculated 291.4 MOS/KG (273-304); Total Protein 5.5 G/DL (6.4-8.3)
[2020-02-10] MEDS ORDERED: DEXTROSE 50% 25 GM/50 ML VIAL IV ONE (05:11)
[2020-02-10] MEDS ORDERED: SODIUM BICARBONATE 50 MEQ/50 ML VIAL IV ONE (05:18)
[2020-02-10] MEDS: DEXTROSE 50% 25 GM/50 ML VIAL IV PRN ×2 (05:24→05:26)
[2020-02-10] MEDS ORDERED: EPINEPHrine 1 MG/10 ML SYRINGE IV ONE (05:27)
[2020-02-10] MEDS ORDERED: CALCIUM CHLORIDE 1,000 MG/10 ML SYRINGE IV ONE (05:28)
[2020-02-10] MEDS ORDERED: NOREPINEPHRINE 16 MG in SODIUM CHLORIDE 0.9% 234 ML IV PRN (06:00)
[2020-02-10 06:51] LABS: Hypochromasia 1+; Lymphocytes 13 % (20-55); Microcytosis 1+; Nucleated Red Blood Cells 1 (0-5); Platelet Estimate Adequate; Segmented Neutrophils 83 % (50-85); Total Cells Counted 100
[2020-02-10] MEDS ORDERED: ASPIRIN EC 325 MG TABLET PO SCH (09:00)
[2020-02-10] MEDS ORDERED: FENOFIBRATE 145 MG TABLET PO SCH (09:00)
[2020-02-15] MEDS ORDERED: INFLUENZA VIRUS VACCINE 0.5 ML SYRINGE IM ONE (09:00)
[2020-02-15] MEDS ORDERED: PNEUMOCOCCAL VACCINE (23 VALENT) 0.5 ML VIAL IM ONE (09:00)
== END 2020-02-10 13:30 | disposition expired | DRG 208 ==
LOC: EDUNIT# → N.ED 18:03 → N.EDINP 20:19 → N.ICU 02-09 00:38
PROVIDERS: ADMIT Family Medicine; ATTEND Family Medicine